=== PATIENT | female | born 1955 | race Caucasian/White ===

== ENCOUNTER 2020-03-06 14:02 | Emergency (ER) | payer MEDICARE, BC, SELFPAY ==
[2020-03-06 14:02] VITALS: BP 171/95; PULSE 80; RESP 18; TEMP 36.4; O2SAT 97; BMI 41.9
--- NOTE | 2020-03-06 14:11 | EKG12_ITS ---
Test Reason : CP Blood Pressure : / mmHG Vent. Rate : 074 BPM Atrial Rate : 074 BPM P-R Int : 202 ms QRS Dur : 094 ms QT Int : 408 ms P-R-T Axes : 086 -62 006 degrees QTc Int : 452 ms Normal sinus rhythm Left axis deviation Anterior infarct , age undetermined Abnormal ECG Confirmed by OCTAVIO MCLEAN, JOSE ANTONIO ([id number]), technical editor JANEEN PINO ([id number]) on 03/07/2020 2:15:08 PM Referred By: AVELINO/SHIMON Confirmed By:JOSE ANTONIO CUNNINGHAM MD
--- NOTE | 2020-03-06 14:20 | ED.VISSUMM ---
- ER Visit Summary Date of Service: 03/06/20 Chief Complaint: Abdominal pain History of Present Illness: The patient is a 65 F who has had abdominal pain for 1 year. She describes dull pain that starts in her lower abdomen and radiates upward into her chest. Nothing makes it better or worse. She does have nausea but denies any vomiting or diarrhea. No dysuria hematuria. She is been seen multiple times in the ER for this. Her last visit was last week at [facility]. She had a negative work-up and was given Carafate and pantoprazole and sent home. She is seen her GI physician and PCP about this. They do not know the cause of her pain. Today the pain radiates up into her chest which made her come here today. Physical Examination: Vital signs reviewed. HEENT exam unremarkable. Heart is regular rate and rhythm without murmurs. Lungs are clear to auscultation. Abdomen is soft with diffuse abdominal tenderness. There is no guarding or rebound tenderness. Extremities reveal no edema. Skin exam normal. Neurologic exam normal. Test Results: EKG was sinus rhythm with rate of 74. No ST changes. Laboratory studies are unremarkable aside for glucose of 164. Emergency Department Course and Treatment: The patient was given Bentyl and Zofran. Her labs are all unremarkable. She just had CAT scans performed at [facility] last week. He did not feel this needed to be repeated as this is chronic pain is been ongoing for about 1 year. She was still having pain so I will give her a dose of morphine here. I will send her home with Bentyl for pain. I will give her surgical follow-up as she has had many abdominal surgeries and it could be possible that adhesions and scar tissue could be causing her discomfort. Treatment Plan: [] Disposition: Discharge Impression: Chronic abdominal pain This note was generated with [employer] dictation software. It may contain incorrect words, spelling, and punctuation that were not noted in review of the chart prior to signing ED Disposition - Plan for ED Patient: Disposition: Home or Assisted Living Instructions: ED Abdominal Pain Unkn Cause Fem Prescriptions: Dicyclomine HCl [Bentyl] 20 mg PO TIDAC #20 cap Prescription Printed Referrals: [facility] Doctor,Out of [NON-STAFF] - Hector Oseguera MD [STAFF PHYSICIAN] -
[2020-03-06 14:48] LABS: Absolute Lymphocyte Count 1.42 X10^3/uL (0.83-4.51); Absolute Neutrophil Count 3.8 X10^3/uL (2.0-7.7); Basophil# 0.03 X10^3/uL; Basophil% 0.5 % (0-1); Eosinophils% 5.1 % (0-5); Hematocrit 38.9 % (37-47); Hemoglobin 12.6 g/dL (12.0-15.0); Lymphocyte # 1.42 X10^3/ul (4.0); Lymphocyte % 24.1 % (19-41); Mean Corp Hgb Conc 32.4 g/dL (32-36); Mean Corpuscular Hgb 28.6 pg (27.0-32.0); Mean Corpuscular Volume 88.2 fL (81-99); Mean Platelet Vol. 10.6 fl (6.2-12.0); Monocyte# 0.36 X10^3/uL; Monocyte% 6.1 % (0-10); NRBC Flagged by Analyzer 0 % (0-5); Neutrophil # 3.75 X10^3/uL (2.7-7.7); Neutrophil % 63.7 % (47-70); Platelet Count 189 K/mm3 (150-450); RBC Distribution Width CV 13.2 % (11.6-14.6); Red Blood Count 4.41 M/mm3 (4.2-5.4); White Blood Count 5.9 K/mm3 (4.4-11.0)
[2020-03-06 15:04] LABS: ALB/GLOB Ratio 0.9 RATIO (0.9-2.4); AST(SGOT) 20 U/L (15-37); Alanine Aminotransfer ALT/SGPT 28 U/L (13-56); Albumin, Serum 3.4 g/dL (3.2-5.0); Alkaline Phosphatase 102 U/L (45-117); Anion Gap 4 (5-15); BUN 11 mg/dL (7-18); BUN/Creat Ratio 20.9 RATIO (10-20); Calcium,Total 8.8 mg/dL (8.5-10.1); Chloride 105 mmol/L (98-107); Creatinine, Serum 0.53 mg/dL (0.55-1.02); EST Glomerular Filtration Rate 124 mL/min (>60); Est Glom Filt Rate - Afr Amer 150 mL/min (>60); Estimated Creatinine Clearance 87.54 ml/min; Globulin 3.8 g/dL (2.2-4.2); Glucose 164 mg/dL (74-106); Lipase 49 U/L (73-393); Potassium 3.7 mmol/L (3.5-5.1); Protein, Total 7.2 g/dL (6.4-8.2); Sodium Level 139 mmol/L (136-145)
[2020-03-06] MEDS: Dicyclomine 20 MG/2 ML Vial IM (15:22)
[2020-03-06] MEDS: Ondansetron 4 MG/2 ML Vial IV (15:22)
[2020-03-06 15:28] LABS: Mucous, Urine 0 SEEN /hpf (<or=2+); Red Blood Cells-Urine 0 SEEN /hpf (0-5); White Blood Cells 0 SEEN /hpf (0-5)
[2020-03-06 15:31] LABS: Color, Urine Yellow (Yellow); Glucose, Dipstick 250 mg/dl (Normal); Ketone-Dipstick Negative (Negative); Leukocyte Esterase-Dipstick Negative /ul (Negative); Nitrite-Dipstick Negative (Negative); Occult Blood-Urine Negative /ul (Negative); Protein-Dipstick Negative (Negative); Urine Bilirubin Dipstick Negative (Negative); Urine Clarity Clear (Clear); Urine Urobilinogen Normal (Normal); Urine pH 6.5 (5.0 - 8.0)
[2020-03-06 15:51] LABS: Bacteria 2+ /hpf (None Seen); Squamous Epithelial Cells - UA 0-5 SEEN /hpf (5-10)
[2020-03-06] MEDS: Morphine 4 MG/ML Syringe IV (16:14)
[2020-03-06 16:21] VITALS: BP 139/76; PULSE 75; RESP 16; O2SAT 95
== END 2020-03-06 16:33 | disposition home or self-care (01) ==
PROVIDERS: Emergency Provider Emergency Medicine; PCP Student in an Organized Health Care Education/Training Program
DX: R10.9 Unspecified abdominal pain (principal); G89.29 Other chronic pain; Z79.02 Long term (current) use of antithrombotics/antiplatelets
CPT/HCPCS: 80053; 81001; 83690; 84484; 85025; 93005; 96372; 96374; 96375; 99283; J7030; A4216; J2405